=== PATIENT | female | born 1965 | race Caucasian/White ===

== ENCOUNTER 2017-01-10 08:39 | Outpatient (CLI) | payer BC ==
--- NOTE | 2017-01-31 12:16 | MMO ---
BILATERAL SCREENING MAMMOGRAMS: Date: 01/10/17 Comparison made to prior exams from 2013 and 2014. This patient's mammogram was interpreted with the assistance of computer-aided detection. FINDINGS: Heterogeneously dense glandular pattern. There are bilateral breast prostheses which appear intact an d stable in appearance. Scattered benign-appearing calcifications. No mass or distortion. No evidence of interval change. Recommend one year follow-up. IMPRESSION: BIRADS 2: Benign Finding(s) POS: JON[facility]ATH[facility]
== END 2017-01-10 08:40 | disposition home or self-care (01) ==
LOC: SCSMAMMO 08:39
PROVIDERS: ATTEND Family Medicine
DX: Z12.31 Encounter for screening mammogram for malignant neoplasm of breast (principal)
CPT/HCPCS: 77067; G0202